=== PATIENT | male | born 1975 | race Caucasian/White ===

== ENCOUNTER 2023-03-27 10:30 | Outpatient (CLI) | payer BC | END 2023-03-27 10:31 | disposition home or self-care (01) | LOC: MRI 10:30 | PROVIDERS: ATTEND Internal Medicine Endocrinology, Diabetes & Metabolism | DX: D35.2 Benign neoplasm of pituitary gland (principal); E22.1 Hyperprolactinemia | CPT/HCPCS: 70553 ==